=== PATIENT | female | born 1965 | race Caucasian/White ===

== ENCOUNTER 2017-05-07 07:44 | Day surgery (SDC) | payer BC ==
[2017-04-30 12:33] VITALS: BMI 28.2
[2017-05-07] MEDS ORDERED: PROPOFOL 20 ML ONE ×2 (07:50)
[2017-05-07] MEDS ORDERED: LIDOCAINE HCL/PF 2% SDV 5ML VIAL ONE (07:50)
[2017-05-07 08:07] VITALS: TEMP 98.6
[2017-05-07 09:41] VITALS: BP 105/60; PULSE 74
== END 2017-05-07 09:40 | disposition home or self-care (01) ==
LOC: FASU-ENDO 07:44
PROVIDERS: ATTEND Internal Medicine Gastroenterology
PROC: 0DJD8ZZ Inspection of Lower Intestinal Tract, Via Natural or Artificial Opening Endoscopic (ICD-10-PCS; principal; 2017-05-07 08:50)
DX: Z85.038 Personal history of other malignant neoplasm of large intestine (principal); Z98.0 Intestinal bypass and anastomosis status; K57.30 Diverticulosis of large intestine without perforation or abscess without bleeding